=== PATIENT | male | born 1945 | race Caucasian/White ===

== ENCOUNTER 2017-05-27 21:46 | Emergency (ER) | payer OTHER ==
[~2017-05-27] VITALS: Ht 160 cm; Wt 77.1 kg
[~2017-05-27 21:46] MED LIST: ACET-8386 PO; ASPI81CT89 PO; METO25TA PO; NITR0.4T2 SL; SIMV20TA1 PO; VAS10 PO
[2017-05-27 21:56] VITALS: BP 152/75
--- NOTE | 2017-05-27 22:43 | NUR ---
PT TAKEN TO BED 8
--- NOTE | 2017-05-27 22:52 | NUR ---
Dr. Leslie evaluating patient at bedside.
[2017-05-27] MEDS ORDERED: MECLIZINE 25 MG TAB PO ONE (22:55)
[2017-05-27] MEDS ORDERED: AMPICILLIN/SULBACTAM 3 GM in NACL 0.9% 100 ML IV ONE (22:55)
[2017-05-27 23:18] LABS: HEMATOCRIT 36.4 % (36-52); HEMOGLOBIN 12.3 g/dL (12.0-18.0); MEAN CORPUSCULAR HEMOGLOBIN 31 pg (27-31); MEAN CORPUSCULAR HGB CONC 34 g/dL (33-37); MEAN CORPUSCULAR VOLUME 91 fL (80-94); PLATELET COUNT (AUTO) 218 K/uL (140-450); RED BLOOD CELL COUNT(AUTO) 3.98 MIL/uL (4.20-6.10); RED CELL DISTRIBUTION WIDTH 12.6 % (11.6-13.7); WHITE BLOOD COUNT (AUTO) 6.8 K/uL (4.8-10.8)
[2017-05-27 23:26] LABS: LYMPHOCYTES % (MANUAL) 25 % (20-46); MONOCYTES % (MANUAL) 8 % (5-12)
[2017-05-27 23:28] LABS: ANION GAP 12.2 (8-16); CARBON DIOXIDE 29.6 mmol/L (21-32); CHLORIDE 101 mmol/L (98-107); CREATININE 0.9 mg/dL (0.7-1.3); GLUCOSE 161 mg/dL (74-106); POTASSIUM 3.8 mmol/L (3.5-5.1); SODIUM SERUM 139 mmol/L (136-145); UREA NITROGEN, BLOOD 17 mg/dL (7-18)
--- NOTE | 2017-05-27 23:30 | NUR ---
72Y/M PRESENTS TO ER C/O DIZZINESS X 2DAYS. PMH DM, HTN, NKA. PT STATES HE STARTED FEELING DIZZY YESTERDAY WITH DOUBLE VISION, PT HAS HEADACHE AND STATES HE HAS HAD IT FOR "VERY LONG TIME" AND "DOCTORS ALWAYS SAY NOTHING WRONG", PT RATES HEADACHE 8/10, DULL, NON RADIATING. PT DENIES DIZZINESS OR DOUBLE VISION AT THIS TIME, PT HAS LIGHT SENSITIVITY. PT DENIES N/V/D, AA&O X4, VSS, PT IN BED, ER MD NOTIFIED OF PT STATUS.
[2017-05-27] MEDS ORDERED: AMPICILLIN/SULBACTAM 3 GM VIAL ONE (23:32)
[2017-05-27 23:34] LABS: ALBUMIN 3.4 g/dL (3.4-5.0); ASPARTATE AMINOTRANSFERASE 20 U/L (15-37); TOTAL BILIRUBIN 0.2 mg/dL (0.0-1.0)
[2017-05-28 00:55] VITALS: BP 162/63
--- NOTE | 2017-05-28 00:57 | NUR ---
IV removed, catheter intact and site benign. Applied folded 4x4 gauze and tape to stop bleeding.
--- NOTE | 2017-05-28 00:59 | NUR ---
Patient discharged with v/s stable. Written and verbal after care instructions given and explained. Patient alert, oriented and verbalized understanding of instructions. Ambulatory with steady gait. All questions addressed prior to discharge. ID band removed. Patient advised to follow up with PMD. Rx of ANTIVERT 25MG, AUGMENTIN 875MG given. Patient educated on indication of medication including possible reaction and side effects. Opportunity to ask questions provided and answered.
== END 2017-05-28 00:59 | disposition home or self-care (01) ==
LOC: MED 21:46
DX: H66.93 Otitis media, unspecified, bilateral (principal); H81.13 Benign paroxysmal vertigo, bilateral; E11.9 Type 2 diabetes mellitus without complications; I10 Essential (primary) hypertension; Z79.899 Other long term (current) drug therapy; Z79.82 Long term (current) use of aspirin
CPT/HCPCS: 36415; 80053; 85025; 96365; 99284; J0295; J8597

== ENCOUNTER 2018-04-02 04:55 | Emergency (ER) | payer OTHER ==
[~2018-04-02] VITALS: Ht 160 cm; Wt 77.1 kg
[2018-04-02 04:58] VITALS: BP 194/65
[2018-04-02] MEDS: ONDANSETRON 4 MG ODT PO ONE (05:45)
[2018-04-02] MEDS: MECLIZINE 25 MG TAB PO ONE (05:45)
[2018-04-02] MEDS: KETOROLAC 30 MG/ML VIAL IM ONE (05:45)
[2018-04-02 06:35] VITALS: BP 188/70
== END 2018-04-02 06:35 | disposition home or self-care (01) ==
LOC: MED 04:55
DX: R51 Headache (principal); R42 Dizziness and giddiness; I10 Essential (primary) hypertension; Z79.899 Other long term (current) drug therapy; Z79.82 Long term (current) use of aspirin
CPT/HCPCS: 70450; 96372; 99284; J1885; J8597; S0119; 99283

== ENCOUNTER 2018-09-21 13:56 | Emergency (ER) | payer OTHER ==
[~2018-09-21] VITALS: Ht 154.9 cm; Wt 74.0 kg
[~2018-09-21 13:56] MED LIST changes: +ASPI-1718 PO; -ASPI81CT89 PO; +ENAL-197 PO; -VAS10 PO
[2018-09-21 14:00] VITALS: BP 158/112
--- NOTE | 2018-09-21 14:34 | NUR ---
PATIENT AMBULATED TO BED 8
--- NOTE | 2018-09-21 14:35 | NUR ---
PT C/O DIZZINESS X3 DAYS, PRODUCTIVE COUGH WITH MUCOUS AND HEADACHE 11/16. DENIES CP/SOB/NVD. PT DENIES N/V/D; SKIN IS INTACT, PINK/WARM/DRY; AAOX4, PERRL, WITH EVEN AND STEADY GAIT; LUNGS CLEAR BL, BREATHING UNLABORED; HR EVEN AND REGULAR, BL PERIPHERAL PULSES PRESENT; BS ACTIVE X4, NO TENDERNESS TO PALPATION, NO HEPATOSPLENOMEGALLY PALPATED, RESONANT TO PERCUSSION; PT DENIES ANY FEVER, CP, SOB, OR COUGH AT THIS TIME; VSS; PATIENT POSITIONED FOR COMFORT; HOB ELEVATED; BEDRAILS UP X2; BED DOWN.
[2018-09-21 14:44] LABS: BASOPHILS % (AUTO) 0.4 % (0.0-2.0); EOSINOPHILS # (AUTO) 0.1 K/uL (0-0.4); EOSINOPHILS % (AUTO) 1.3 % (0.0-4.0); HEMATOCRIT 43.3 % (36-52); HEMOGLOBIN 14.1 g/dL (12.0-18.0); LYMPHOCYTES # (AUTO) 2.4 K/uL (2.0-11.5); LYMPHOCYTES % (AUTO) 40.8 % (20.5-51.1); MEAN CORPUSCULAR HEMOGLOBIN 30 pg (27-31); MEAN CORPUSCULAR HGB CONC 33 g/dL (33-37); MEAN CORPUSCULAR VOLUME 93.2 fL (80-94); MONOCYTES # (AUTO) 0.4 K/uL (0.8-1.0); MONOCYTES % (AUTO) 7.3 % (1.7-9.3); NEUTROPHILS % (AUTO) 50.2 % (42.2-75.2); PLATELET COUNT (AUTO) 272 K/uL (140-450); RED BLOOD CELL COUNT(AUTO) 4.64 MIL/uL (4.20-6.10); RED CELL DISTRIBUTION WIDTH 13.7 % (11.6-13.7)
[2018-09-21 15:16] LABS: ALBUMIN 3.5 g/dL (3.4-5.0); ANION GAP 12.8 (8-16); ASPARTATE AMINOTRANSFERASE 32 U/L (15-37); CARBON DIOXIDE 27.2 mmol/L (21-32); CHLORIDE 104 mmol/L (98-107); CREATININE 0.9 mg/dL (0.7-1.3); GLUCOSE 116 mg/dL (74-106); SODIUM SERUM 140 mmol/L (136-145); TOTAL BILIRUBIN 0.2 mg/dL (0.0-1.0); UREA NITROGEN, BLOOD 17 mg/dL (7-18)
[2018-09-21 15:33] VITALS: BP 140/72
--- NOTE | 2018-09-21 15:33 | NUR ---
Patient discharged with v/s stable. Written and verbal after care instructions given and explained. Patient alert, oriented and verbalized understanding of instructions. Ambulatory with steady gait. All questions addressed prior to discharge. ID band removed. Patient advised to follow up with PMD. Rx of CODEINE PHOSPHATE, TESSALON PERLES given. Patient educated on indication of medication including possible reaction and side effects. Opportunity to ask questions provided and answered.
== END 2018-09-21 15:33 | disposition home or self-care (01) ==
LOC: MED 13:56
DX: R05 Cough (principal); R07.89 Other chest pain; R42 Dizziness and giddiness; I10 Essential (primary) hypertension; Z79.82 Long term (current) use of aspirin; Z79.891 Long term (current) use of opiate analgesic; Z79.899 Other long term (current) drug therapy
CPT/HCPCS: 36415; 70450; 71045; 80053; 84484; 85025; 93005; 99284; Q0092

== ENCOUNTER 2019-09-11 22:27 | Emergency (ER) | payer OTHER ==
[~2019-09-11] VITALS: Ht 154.9 cm; Wt 74.8 kg
[~2019-09-11 22:27] MED LIST changes: -ASPI-1718 PO; +ASPI-1822 PO
[2019-09-11 22:30] VITALS: BP 212/89
--- NOTE | 2019-09-11 22:30 | NUR ---
74 y/o male c/o high blood pressure x 2100 today. rates pain 8/10 and is located on the head and describes it as throbbing. pt states he has head, blurrry vision. steady gait present. a&o x4. 3mm perrla. arm strength equal bilat. heart sounds s1s2 present. no distress noted. nka. pmh: htn, migraines.
--- NOTE | 2019-09-11 22:30 | NUR ---
TO BED # 07 AMBULATORY
[2019-09-11 23:19] LABS: BASOPHILS % (AUTO) 0.3 % (0.0-2.0); EOSINOPHILS # (AUTO) 0.2 K/uL (0-0.4); EOSINOPHILS % (AUTO) 2.3 % (0.0-4.0); HEMATOCRIT 33.5 % (36-52); HEMOGLOBIN 11.5 g/dL (12.0-18.0); LYMPHOCYTES # (AUTO) 4.1 K/uL (2.0-11.5); MEAN CORPUSCULAR HEMOGLOBIN 31 pg (27-31); MEAN CORPUSCULAR HGB CONC 35 g/dL (33-37); MEAN CORPUSCULAR VOLUME 89.2 fL (80-94); MONOCYTES # (AUTO) 0.6 K/uL (0.8-1.0); MONOCYTES % (AUTO) 8.8 % (1.7-9.3); NEUTROPHILS # (AUTO) 2.1 K/uL (1.8-7.7); NEUTROPHILS % (AUTO) 29.6 % (42.2-75.2); PLATELET COUNT (AUTO) 215 K/uL (140-450); RED BLOOD CELL COUNT(AUTO) 3.75 MIL/uL (4.20-6.10); RED CELL DISTRIBUTION WIDTH 13.7 % (11.6-13.7); WHITE BLOOD COUNT (AUTO) 6.9 K/uL (4.8-10.8)
[2019-09-11 23:35] LABS: ALBUMIN 3.8 g/dL (3.4-5.0); ANION GAP 9.3 (8-16); ASPARTATE AMINOTRANSFERASE 31 U/L (15-37); CARBON DIOXIDE 29.6 mmol/L (21-32); CHLORIDE 101 mmol/L (98-107); CREATININE 0.8 mg/dL (0.6-1.3); GLUCOSE 100 mg/dL (74-106); POTASSIUM 3.9 mmol/L (3.5-5.1); SODIUM SERUM 136 mmol/L (136-145); TOTAL BILIRUBIN 0.3 mg/dL (0.0-1.0); UREA NITROGEN, BLOOD 20 mg/dL (7-18)
[2019-09-11] MEDS ORDERED: diphenhydrAMINE 50 MG/ML VIAL IVP ONE (23:35)
[2019-09-11] MEDS ORDERED: PROCHLORPERAZINE 10 MG/2 ML VIAL IVP ONE (23:35)
[2019-09-11] MEDS ORDERED: KETOROLAC 15 MG/ML VIAL IVP ONE (23:35)
[2019-09-11] MEDS ORDERED: hydrALAZINE 20 MG/ML VIAL IVP ONE (23:35)
[2019-09-11 23:38] LABS: PROTHROMBIN TIME 10.3 secs (10.8-13.4)
[2019-09-11 23:43] LABS: FREE T4 (FREE THYROXINE) 1.09 ng/dL (0.76-1.46); MAGNESIUM 1.4 mg/dL (1.8-2.4); THYROID STIMULATING HORMONE 8.15 uIU/mL (0.34-3.74)
--- NOTE | 2019-09-12 | NUR ---
PT LAYING COMFORTABLY IN BED. NO DISTRESS NOTED.
[2019-09-12] MEDS ORDERED: ACETAMINOPHEN 325 MG TAB PO ONE (00:50)
[2019-09-12] MEDS ORDERED: ACETAMINOPHEN 650 MG/20.3 ML UDC ONE (01:01)
[2019-09-12] MEDS ORDERED: cloNIDine 0.1 MG TAB PO ONE (01:10)
[2019-09-12] MEDS ORDERED: MAG SULF 2000 MG/WATER PREMIX 50 ML IV ONE (01:20)
--- NOTE | 2019-09-12 02:00 | NUR ---
PT LAYING COMFORTABLY IN BED. EQUAL CHEST RISE AND FALL. NO DISTRESS NOTED.
--- NOTE | 2019-09-12 04:45 | NUR ---
CALLED [facility] AND GAVE REPORT TO CIELO WORRELL. TRANSPORTATION ARRIVED AT THIS TIME.
[2019-09-12 04:57] VITALS: BP 171/60
--- NOTE | 2019-09-12 04:58 | NUR ---
Patient to be transferred to [facility]. Is being transferred due to INSURANCE REQUEST. Receiving facility has accepting physician and available space. ER physician has signed transfer form. Patient or responsible democrat has agreed to transfer and signed form. Patient belongings inventoried and will be sent with patient. Copy of nursing notes, lab reports, EKG, Physicians Orders and X-rays to be sent with patient. Report called to CIELO WORRELL at receiving facility. [facility] ambulance service has been called for transfer. ETA is 20MIN.
== END 2019-09-12 04:58 | disposition short-term general hospital (02) ==
LOC: MED 22:27
DX: R51 Headache (principal); I10 Essential (primary) hypertension; Z79.899 Other long term (current) drug therapy
CPT/HCPCS: 36415; 71045; 80053; 83735; 83880; 84439; 84443; 84484; 85025; 85610; 85730; 93005; 96365; 96366; 96375; 99285; J0360; J0780; J1200; J1885; J3475